=== PATIENT | male | born 1990 | race Two or more races ===

== ENCOUNTER 2017-08-23 18:33 | Emergency (ER) | payer SELFPAY | END 2017-08-23 20:10 | disposition home or self-care (01) | LOC: D.ER 18:33 | DX: S81.812A Laceration without foreign body, left lower leg, initial encounter (principal); W19.XXXA Unspecified fall, initial encounter; Y93.89 Activity, other specified; Y92.027 Garden or yard of mobile home as the place of occurrence of the external cause ==